=== PATIENT | male | born 1955 | race Caucasian/White ===

== ENCOUNTER 2016-06-05 17:04 | Emergency (ER) | payer OTHER ==
[2016-06-05 17:18] VITALS: TEMP 97.9
--- NOTE | 2016-06-05 17:47 | EDPHY ---
General Narrative: CHIEF COMPLAINT: Laceration HISTORY OF PRESENT ILLNESS: Patient was working with a dry box tender around 4:30 p.m. when he accidentally cut himself in the right ankle. This was on the dorsal medial aspect near the junction of the foot and ankle. He reports a small laceration but it was "pulsating." Minimally painful. He applied pressure for 5 minutes and then the bleeding stopped. He applied his own dressing with gauze and duct tape. He said no numbness or tingling distally. Has no injury elsewhere. No motor deficits. Uncertain when his last tetanus update was. No other associated complaints or modifying factors. REVIEW OF SYSTEMS: Ten systems reviewed and are negative unless otherwise noted in the HPI EXAMINATION General Appearance: Alert, no distress Cardiovascular: Pulses normal throughout. Symmetric DP and PT pulses at 2+. Brisk cap refill in all toes. Neurological: A&O, sensory symmetric, strength symmetric Skin: Warm and dry, no rash. 1 cm laceration on the right ankle, dorsomedial. No bleeding. No foreign body. Extremities: Nontender other than over the laceration. There is full dorsiflexion plantar flexion of the ankle. Full eversion inversion. Neurovascular intact distal to the right foot-ankle laceration. Psychiatric: Mood and affect normal MDM: 5:45 p.m. Laceration to the medial right ankle, over the dorsal aspect of the junction of the foot and the ankle. Patient reports pulsatile flow at home. He applied a dressing and at time of my examination there is no bleeding. Wound has been anesthetized. We will proceed with irrigation and closure. 6:15 p.m. Laceration to the right dorsal medial ankle. There has been no evidence of arterial injury during his stay in the emergency department. I have sutured the wound without any bleeding. Wound has been dressed we have discussed wound care. He is to follow up here in 7-10 days for suture removal. He is to return sooner for any signs of bleeding or infection as discussed. He is comfortable with this plan and discharged home stable condition. PROCEDURE: Laceration repair Consent: Verbal Location: Right ankle, medial at the junction of the foot and ankle Length of repair: 1 cm Complexity: Simple Layer involvement: Single Anesthesia: Local, 1% lidocaine plain. 0.25% Marcaine with epinephrine, 7 mL Irrigation: Extensive Debridement: None Procedure description: After anesthesia, the wound was copiously irrigated. The wound was then explored, and there is no foreign body in the wound bed. No pulsatile bleeding. No venous bleeding. Wound was then closed with simple interrupted sutures with good approximation of the wound borders. Hemostasis maintained. No complications. Tolerated well. Suture/Staple material: 5-0 Ethilon. Simple interrupted x2. Wound care: Routine as discussed Suture/Staple removal: 7-10 Days ED Precautions: Worsening pain. Erythema, edema, cyanosis, pallor, paresthesia or anesthesia. SUPERVISION: This patient was independently evaluated without direct examination by the attending physician. Case was discussed with attending physician. - History Smoking Status: Former smoker - Objective Vital Signs: Initial Vital Signs Temperature (C) 97.9 F 06/05/16 17:17 Heart Rate 85 06/05/16 17:17 Respiratory Rate 14 06/05/16 17:17 Blood Pressure 144/93 H 06/05/16 17:17 O2 Sat (%) 94 06/05/16 17:17 O2 Delivery Mode Nasal Cannula O2 (L/minute) 2 Allergies/Adverse Reactions: No Known Allergies Allergy (Verified 02/25/16 18:03) Home Medications: Medication Instructions Recorded DILTIAZEM ER 06/10/15 Wellbutrin Xl 06/10/15 Propafenone HCl Sr [Rythmol Sr 225 mg PO 02/25/16 225mg (*)] Amoxicillin/Clavulanate Pot 875 mg PO BID #20 tab 06/05/16 [Augmentin 875 MG TAB (*)] Medications Given: Discontinued Medications Diphtheria/Tetanus/Acell Pertussis (Boostrix) 0.5 ml IM .ONCE ONE Stop: 06/05/16 17:50 Last Admin: 06/05/16 17:52 Dose: 0.5 ml Departure - Departure Disposition: Home, Routine, Self-Care Clinical Impression: Foot laceration Qualifiers: Encounter type: initial encounter Laterality: right Qualified Code(s): S91.311A - Laceration without foreign body, right foot, initial encounter Condition: Good Instructions: Care For Your Stitches (ED), Laceration (ED) Additional Instructions: Wound care as discussed. Return to the ER in 7-10 days for suture removal. Return sooner for signs of bleeding, redness or sensory changes around the laceration Referrals: Jesse Arnold MD [[facility] [place] Primary Care Provider] - As per Instructions Prescriptions: Amoxicillin/Clavulanate Pot [Augmentin 875 MG TAB (*)] 875 mg PO BID #20 tab
[2016-06-05] MEDS ORDERED: TDAP ADULT 0.5 ML INJ (BOOSTRIX) IM ONE (17:49)
[2016-06-05 18:47] VITALS: BP 136/78; PULSE 69; RESP 15; O2SAT 96
== END 2016-06-05 18:47 | disposition home or self-care (01) ==
PROC: 0HQMXZZ Repair Right Foot Skin, External Approach (ICD-10-PCS; principal; 2016-06-05)
PROC: 3E0234Z Introduction of Serum, Toxoid and Vaccine into Muscle, Percutaneous Approach (ICD-10-PCS; principal; 2016-06-05)
DX: S91.311A Laceration without foreign body, right foot, initial encounter (principal); Z23 Encounter for immunization; Z87.891 Personal history of nicotine dependence; W27.8XXA Contact with other nonpowered hand tool, initial encounter